=== PATIENT | male | born 1960 | race Caucasian/White ===

== ENCOUNTER 2016-12-12 13:45 | Inpatient (IN) | payer OTHER ==
[~2016-12-12] VITALS: Ht 182.9 cm; Wt 123.7 kg
[2016-12-12] VITALS (9 sets, daily range): BP systolic 98–128; BP diastolic 64–91
[~2016-12-12 13:45] MED LIST: [UNRECOGNIZED DRUG - REMARK]
--- OUTSIDE RECORDS SUMMARY | 2016-12-12 14:11 | XMS REPORT | Continuity of Care Document ---
Author Author [facility] Organization [facility] Address Unknown Phone Unavailable Allergies Medications Problems Procedures Results Encounters ACCT No. Visit Date/Time Discharge Status Pt. Type Provider Facility Loc./Unit Complaint [id number] 11/12/2013 13:43:00 2013 23:59:59 CLS Outpatient [id number] 2012 21:39:00 2012 22:33:00 DIS Emergency
[2016-12-12] MEDS ORDERED: MULT-35 PO (14:40)
[2016-12-12] MEDS ORDERED: VIT1CAPS9 PO (14:40)
[2016-12-12] MEDS ORDERED: FEXO180T84 PO (14:40)
[2016-12-12] MEDS ORDERED: L.AC1CAP6 PO (14:40)
[2016-12-12] MEDS ORDERED: NAPR220T66 PO (14:40)
[2016-12-12] MEDS ORDERED: POTA99TA21 PO (14:40)
[2016-12-12] MEDS ORDERED: CITA10TA12 PO (14:40)
[2016-12-12] MEDS ORDERED: CALC-823 PO (14:40)
[2016-12-12] MEDS ORDERED: LISI40TA PO (14:40)
[2016-12-12] MEDS ORDERED: MAGN400T39 PO (14:40)
[2016-12-12] MEDS ORDERED: FLAX1000 PO (14:40)
[2016-12-12] MEDS ORDERED: HYDR25TA4 PO (14:41)
[2016-12-12] MEDS ORDERED: CATHETER FLUSH 10 ML SYR IV PRN (14:45)
[2016-12-12] MEDS ORDERED: LISI1TAB8 PO (14:53)
[2016-12-12] MEDS ORDERED: ACET-2267 PO (14:53)
[2016-12-12] MEDS ORDERED: LORA10TA7 PO (14:53)
[2016-12-12] MEDS ORDERED: CA C1TAB78 PO (14:53)
[2016-12-12] MEDS ORDERED: FLUT16SP22 NS (14:53)
[2016-12-12] MEDS ORDERED: MV,M1TAB4 PO (14:53)
--- NOTE | 2016-12-12 15:32 | Diagnostic Imaging Report ---
EXAMINATION: PA and lateral views of the chest. INDICATION: Atrial fibrillation. FINDINGS: The heart size is mildly enlarged. The lungs are clear. No effusion or pneumothorax. The mediastinum and tiffanie appear unremarkable. IMPRESSION: Mild cardiomegaly. No focal infiltrate. Dictated by: Dictated on workstation # [id number]
--- NOTE | 2016-12-12 16:56 | Cardiology History & Physical ---
HPI-Cardiology Cardiology H&P Date of Admission 12/12/16 Primary Care Physician Roberto Rodriguez MD Attending Physician Lety Abreu MD, MA FACP [facility] Consulting Physician TYRELL CC: Palpitations HPI: 56 yo man who has been having a feeling of rapid heart beat that started on 12/09/16. This has varied in intensity, but has not resolved. This has been a feeling of a rapid heart beat that has varied in rate, but not resolved. Today he decided to come to the ER because was dizzy. Noted heart rate to be 145 bpm. Was found to have a fib/fl in the [place] ER from where he was sent to us. Denies cp, but has had a feeling of nonspecific chest discomfort continuously since 12/09/16, mild, nonradiating, w/o aggravating or relieving factors, associated with a feeling of rapid heart beat, never experienced before. Notes mild exertional shortness of breath Review of Systems-Cardiology Review of Systems Constitutional: malaise, tiredness, No weight loss, No weight gain Eyes: No vision change Ears/Nose/Throat: No ear discharge, No nasal drainage, No recent hearing loss Respiratory: As described under HPI Cardiovascular: As described under HPI Gastrointestinal: No constipation, No diarrhea, No nausea, No vomiting Genitourinary: No dysuria, No hematuria Musculoskeletal: No back pain, joint pain (chronic) Skin: No rash, No ulcerations Psychiatric/Neurological: No seizure, No focal weakness, No syncope Hematologic: No bleeding abnormalities [facility] Hx Immunizations Up To Date Tetanus Booster (TDap): Unknown Past Medical History PMH As described under Assessment. Family Medical History Family Medical History: No fam h/o CAD, SCD Allergies and Home Medications Allergies Coded Allergies: No Known Drug Allergies (Unverified , 12/02/12) Home Medications Acetaminophen 500 Mg Tablet, 1,000 MG PO Q4H PRN for PAIN-MILD, (Reported) Ca Carb & Gluc/Mag Ox & Gluc 1 Each Tablet, 1 TAB PO DAILY, (Reported) Citalopram Hydrobromide 10 Mg Tablet, 10 MG PO DAILY, (Reported) Flaxseed Oil 1,000 Mg Capsule, 4 CAP PO DAILY, (Reported) Fluticasone Propionate 16 Gm [place].susp, 1 SPRAY NS BID, (Reported) L.acidoph & Paracasei,B.lactis 1 Each Capsule, 1 CAP PO BID, (Reported) Lisinopril/Hydrochlorothiazide 1 Each Tablet, 2 TAB PO DAILY, (Reported) Loratadine 10 Mg Tablet, 10 MG PO DAILY, (Reported) Mv,Minerals/FA/Lycopene/Ginkgo 1 Each Tablet, 1 TAB PO DAILY, (Reported) Naproxen Sodium 220 Mg Tablet, 440 MG PO BID PRN for PAIN-MILD, (Reported) Potassium Gluconate 99 Mg Tablet, 99 MG PO DAILY, (Reported) Vit C/Vit E/Lutein/Min/[place]-3 1 Each Capsule, 1 CAP PO DAILY, (Reported) Physical Exam-Cardiology Physical Exam Vital Signs/I&O Capillary Refill : Constitutional: AAO x 3, well-developed, well-nourished HEENT: EOMI, hearing is well preserved, No xanthelasmas are seen Neck: No carotid bruit, carotid pulses are 2 + bilaterally, with good upstrokes Respiratory: No accessory muscle use, No respiratory distress, lungs clear to percussion, lungs clear to auscultation Cardiovascular: regular rate-rhythm, S1 and S2, systolic murmur (faint DARCI at card base) Gastrointestinal: No tender, soft, No guarding, No rebound, audible bowel sounds Extremities: No clubbing, No cyanosis, No significant edema Neurologic/Psychiatric: oriented x 3, grossly intact, power is 5/5 both on sides Skin: No rash on exposed areas, No ulcerations on exposed areas A/P-Cardiology Assessment/Admission Diagnosis PAF, first diagnosed on an ECG of 12/12/16 Obesity with BMI 37 H/o DJD Hypertension TSH normal on lab work of 12/12/16 at the [facility] Discussion and Recomendations * Enoxaparin for stroke prophylaxis * iv dilt for vent rate control * Echo to eval for structural heart disease * Monitor labs * If doesn't self-convert to NSR, will consider STAN and elec CV * I spoke with him and discussed his diagnosis and our management plan LETY ABREU MD FACP [facility] Dec 12, 2016 16:56
[2016-12-12] MEDS: DILTIAZEM DRIP 100 MG in SODIUM CHLORIDE (ADD-VANTAGE) 100 ML IV SCH ×2 (17:41→20:51)
[2016-12-12] MEDS: ACETAMINOPHEN 325 MG TABLET/CAPLET (TYLENOL) PO PRN (18:23)
[2016-12-12] MEDS ORDERED: INFLUENZA TRIvalent 2017-2018 0.5 ML/45 MCG SYR IM ONE (18:30)
[2016-12-12] MEDS: CATHETER FLUSH 10 ML SYR IV SCH (21:27)
[2016-12-12] MEDS ORDERED: ENOXAPARIN 60 MG/0.6 ML (LOVENOX) SYR SC SCH (22:00)
[2016-12-12] MEDS: ENOXAPARIN 300 MG/3 ML (LOVENOX) MULTI-DOSE VIAL SQ SCH (22:25)
[2016-12-13] VITALS (11 sets, daily range): BP systolic 97–138; BP diastolic 69–101
[2016-12-13] MEDS: ACETAMINOPHEN 325 MG TABLET/CAPLET (TYLENOL) PO PRN (00:38)
[2016-12-13] MEDS: DILTIAZEM DRIP 100 MG in SODIUM CHLORIDE (ADD-VANTAGE) 100 ML IV SCH (04:18)
[2016-12-13 05:06] LABS: BASOPHILS % (AUTO) 0 % (0-10); EOSINOPHILS # (AUTO) 0.2 10^3/uL (0.0-0.3); EOSINOPHILS % (AUTO) 4 % (0-10); LYMPHOCYTES # (AUTO) 2.4 X 10^3 (1.0-4.0); LYMPHOCYTES % (AUTO) 48 % (12-44); MEAN CORPUSCULAR HEMOGLOBIN 29 PG (25-34); MEAN CORPUSCULAR HGB CONC 33 G/DL (32-36); MEAN CORPUSCULAR VOLUME 87 FL (80-99); MEAN PLATELET VOLUME 9.3 FL (7.4-10.4); MONOCYTES # (AUTO) 0.5 X 10^3 (0.0-1.0); MONOCYTES % (AUTO) 10 % (0-12); NEUTROPHILS # (AUTO) 1.9 X 10^3 (1.8-7.8); NEUTROPHILS % (AUTO) 37 % (42-75); PLATELET COUNT 237 10^3/uL (130-400); RED BLOOD COUNT 5.17 10^6/uL (4.35-5.85); RED CELL DISTRIBUTION WIDTH 14.6 % (10.0-14.5)
[2016-12-13 05:22] LABS: ALANINE AMINOTRANSFERASE 36 U/L (0-55); ALBUMIN 3.8 GM/DL (3.2-4.5); ANION GAP 10 MMOL/L (5-14); ASPARTATE AMINO TRANSFERASE 21 U/L (5-34); BILIRUBIN,TOTAL 0.4 MG/DL (0.1-1.0); BLOOD UREA NITROGEN 17 MG/DL (7-18); BUN/CREATININE RATIO 20; CALCIUM 9.3 MG/DL (8.5-10.1); CARBON DIOXIDE 25 MMOL/L (21-32); CHLORIDE 103 MMOL/L (98-107); CREATININE SERUM 0.85 MG/DL (0.60-1.30); GFR ESTIMATED > 60; GLUCOSE 114 MG/DL (70-105); MAGNESIUM 2.3 MG/DL (1.8-2.4); SODIUM 138 MMOL/L (135-145); TOTAL PROTEIN 6.5 GM/DL (6.4-8.2)
[2016-12-13] MEDS: CATHETER FLUSH 10 ML SYR IV SCH (06:23)
[2016-12-13] MEDS ORDERED: NS IV 500 ML 500 ML ONE (09:41)
[2016-12-13] MEDS ORDERED: MIDAZOLAM 5 MG/5 ML (VERSED) VIAL ONE (09:44)
[2016-12-13] MEDS ORDERED: proPOfol 200 MG/20 ML (DIPRIVAN) VIAL IV ONE ×2 (09:44→10:15)
[2016-12-13] MEDS ORDERED: LIDOCAINE 2% VISCOUS 15 ML UDC PO NR (10:00)
[2016-12-13] MEDS ORDERED: NS IV 500 ML 500 ML IV SCH (10:00)
[2016-12-13] MEDS ORDERED: MIDAZOLAM 5 MG/5 ML (VERSED) VIAL IVP ONE (10:15)
[2016-12-13] MEDS ORDERED: APIXABAN 5 MG (ELIQUIS) TABLET PO NR (10:45)
[2016-12-13] MEDS ORDERED: DILTIAZEM 300 MG (CARDIZEM CD) CAP PO NR (11:12)
[2016-12-13] MEDS: ENOXAPARIN 300 MG/3 ML (LOVENOX) MULTI-DOSE VIAL SQ SCH (11:19)
[2016-12-13] MEDS ORDERED: LORATADINE (CLARITIN) 10 MG TAB PO SCH (11:43)
[2016-12-13] MEDS ORDERED: FLUTICASONE NASAL SPRAY (FLONASE) 16 GM BTL NS SCH (11:43)
--- NOTE | 2016-12-13 11:56 | Progress Note-Cardiology ---
Cardiology SOAP Progress Note Subjective: No cp, palp, syncope, shortness of breath Objective: I&O/Vital Signs Vital Sign - Last 12Hours 12/13/16 12/13/16 12/13/16 12/13/16 00:20 01:00 01:00 02:00 Pulse 73 73 70 Resp 18 21 B/P (MAP) 108/73 106/69 Pulse Ox 97 90 O2 Delivery Nasal Cannula Nasal Cannula Nasal Cannula O2 Flow Rate 2.00 2.00 2.00 12/13/16 12/13/16 12/13/16 12/13/16 03:00 04:00 04:00 04:05 Pulse 72 70 Resp 21 18 B/P (MAP) 101/74 102/78 Pulse Ox 88 98 O2 Delivery Nasal Cannula OxyMask OxyMask O2 Flow Rate 2.00 2.00 2.00 12/13/16 12/13/16 12/13/16 12/13/16 04:18 05:00 06:00 06:05 Pulse 71 91 71 71 Resp 29 22 22 B/P (MAP) 105/80 104/78 111/71 Pulse Ox 93 88 96 O2 Delivery OxyMask OxyMask OxyMask O2 Flow Rate 2.00 2.00 2.00 12/13/16 12/13/16 12/13/16 12/13/16 07:00 07:00 08:00 08:00 Temp 98.4 Pulse 75 98 71 Resp 10 29 B/P (MAP) 117/84 Pulse Ox 96 96 O2 Delivery OxyMask Room Air OxyMask O2 Flow Rate 2.00 2.00 12/13/16 12/13/16 12/13/16 12/13/16 08:15 09:00 10:00 11:00 Pulse 96 79 78 Resp 1 25 16 B/P (MAP) 138/101 107/83 108/80 Pulse Ox 97 94 97 O2 Delivery Room Air OxyMask OxyMask OxyMask O2 Flow Rate 2.00 2.00 2.00 Weight (Pounds): 272 Weight (Ounces): 11.5 Weight (Calculated Kilograms): 123.578228 Constitutional: AAO x 3, well-developed, well-nourished Respiratory: No accessory muscle use, No respiratory distress, lungs clear to percussion, lungs clear to auscultation Cardiovascular: regular rate-rhythm, S1 and S2, systolic murmur (faint DARCI at card base) Gastrointestional: No tender, soft, No guarding, No rebound, audible bowel sounds Extremities: No clubbing, No cyanosis, No significant edema Neurologic/Psychiatric: oriented x 3, grossly intact, power is 5/5 both on sides Skin: No rash on exposed areas, No ulcerations on exposed areas Results/Procedures: Labs Laboratory Tests 12/12/16 14:41: Glucometer 83 12/13/16 04:25: White Blood Count 5.0, Red Blood Count 5.17, Hemoglobin 14.9, Hematocrit 45, Mean Corpuscular Volume 87, Mean Corpuscular Hemoglobin 29, Mean Corpuscular Hemoglobin Concent 33, Red Cell Distribution Width 14.6H, Platelet Count 237, Mean Platelet Volume 9.3, Neutrophils (%) (Auto) 37L, Lymphocytes (%) (Auto) 48H , Monocytes (%) (Auto) 10, Eosinophils (%) (Auto) 4, Basophils (%) (Auto) 0, Neutrophils # (Auto) 1.9, Lymphocytes # (Auto) 2.4, Monocytes # (Auto) 0.5, Eosinophils # (Auto) 0.2, Basophils # (Auto) 0.0, Sodium Level 138, Potassium Level 4.0, Chloride Level 103, Carbon Dioxide Level 25, Anion Gap 10, Blood Urea Nitrogen 17, Creatinine 0.85, Estimat Glomerular Filtration Rate > 60, BUN/ Creatinine Ratio 20, Glucose Level 114H, Calcium Level 9.3, Magnesium Level 2.3 , Total Bilirubin 0.4, Aspartate Amino Transf (AST/SGOT) 21, Alanine Aminotransferase (ALT/SGPT) 36, Alkaline Phosphatase 48, Total Protein 6.5, Albumin 3.8 A/P: Assessment: PAF, first diagnosed on an ECG of 12/12/16. S/p successful conversion to NSR following 50J sync external cardioversion on 12/13/16 No evidence of ACS TTE on 12/12/16: LVEF approx 50-55%, triv MR and TR, mild conc LVH, mild to mod enlargement of aortic root, PASP approx 30 mmHg STAN on 12/13/16: LVEF 55-60%, normal valvular structure, trivial MR and TR, no evidence of intracardiac shunt or thrombus Obesity with BMI 37. PETE suspected Impaired fasting glucose H/o DJD Hypertension, controlled TSH normal on lab work of 12/12/16 at the [facility] Plan: * Ext elec CV this am post STAN, after informed consent for these procedures * Change dilt to oral long-acting. Change Lovenox to oral Elquis * Educated him on his risk for DM II and advised wgt loss and discussed strategies * Advised eval for PETE * I discussed with him in detail his CV diagnoses and treatments undertaken and future plans * Advised outpatient f/u OLENA ABREU MD FACP [facility] Dec 13, 2016 11:56
[2016-12-13] MEDS ORDERED: APIX5TAB PO (12:14)
[2016-12-13] MEDS ORDERED: DILT300C36 PO (12:14)
--- NOTE | 2016-12-13 12:14 | Discharge Inst-Cardiology ---
Discharge Inst-Cardiac Discharge Medications New Medications: Apixaban (Eliquis) 5 Mg Tablet 5 MG PO BID, #60 TAB 5 Refills Diltiazem HCl (Cardizem Cd) 300 Mg Cap.er.24h 300 MG PO DAILY for 30 Days, #30 CAP 5 Refills Continued Medications: Acetaminophen (Tylenol Extra Strength) 500 Mg Tablet 1000 MG PO Q4H PRN for PAIN-MILD, TAB Ca Carb & Gluc/Mag Ox & Gluc (Calcium Magnesium Caplet) 1 Each Tablet 1 TAB PO DAILY, TAB Citalopram Hydrobromide (Celexa) 10 Mg Tablet 10 MG PO DAILY, TAB Flaxseed Oil (Flaxseed Oil) 1,000 Mg Capsule 4 CAP PO DAILY, CAP Fluticasone Propionate (Fluticasone Propionate) 16 Gm [place].susp 1 SPRAY NS BID, SPRAY L.acidoph & Paracasei,B.lactis (Probiotic) 1 Each Capsule 1 CAP PO BID, CAP Loratadine (Loratadine) 10 Mg Tablet 10 MG PO DAILY, TAB Mv,Minerals/FA/Lycopene/Ginkgo (One Daily Men's 50+ Tablet) 1 Each Tablet 1 TAB PO DAILY, TAB Potassium Gluconate (Potassium) 99 Mg Tablet 99 MG PO DAILY, TAB Vit C/Vit E/Lutein/Min/[place]-3 (Ocuvite Softgel) 1 Each Capsule 1 CAP PO DAILY, CAP Discontinued Medications: Lisinopril/Hydrochlorothiazide (Lisinopril-Hctz 20-12.5 mg Tab) 1 Each Tablet 2 TAB PO DAILY, TAB Naproxen Sodium (Aleve) 220 Mg Tablet 440 MG PO BID PRN for PAIN-MILD, TAB Orders-Post D/C & Referrals Pneu Vac Indicated: Yes OLENA ABREU MD FACP [facility] Dec 13, 2016 12:14
--- NOTE | 2016-12-13 12:17 | Cardiology Discharge Summary ---
Diagnosis/Chief Complaint Date of Admission Dec 12, 2016 at 13:45 Date of Discharge 12/13/26 Final/Discharge Diagnosis Paroxysmal atrial flutter, first diagnosed on an ECG of 12/12/16. S/p successful conversion to NSR following 50J sync external cardioversion on No evidence of ACS TTE on 12/12/16: LVEF approx 50-55%, triv MR and TR, mild conc LVH, mild to mod enlargement of aortic root, PASP approx 30 mmHg STAN on 12/13/16: LVEF 55-60%, normal valvular structure, trivial MR and TR, no evidence of intracardiac shunt or thrombus Obesity with BMI 37. PETE suspected Impaired fasting glucose H/o DJD Hypertension, controlled TSH normal on lab work of 12/12/16 at the [facility] Chief Complaint/HPI Chief Complaint/HPI CC: Palpitations HPI: 56 yo man who has been having a feeling of rapid heart beat that started on 12/09/16. This has varied in intensity, but has not resolved. This has been a feeling of a rapid heart beat that has varied in rate, but not resolved. Today he decided to come to the ER because was dizzy. Noted heart rate to be 145 bpm. Was found to have a fib/fl in the [place] ER from where he was sent to us. Denies cp, but has had a feeling of nonspecific chest discomfort continuously since 12/09/16, mild, nonradiating, w/o aggravating or relieving factors, associated with a feeling of rapid heart beat, never experienced before. Notes mild exertional shortness of breath Please refer to our note of 12/13/16 for hospital course Discharge Summary Procedures TTE on 12/12/16 STAN and external electrical cardioversion on 12/13/16 Hospital Course Pending Labs Laboratory Tests 12/13/16 04:25: White Blood Count 5.0, Red Blood Count 5.17, Hemoglobin 14.9, Hematocrit 45, Mean Corpuscular Volume 87, Mean Corpuscular Hemoglobin 29, Mean Corpuscular Hemoglobin Concent 33, Red Cell Distribution Width 14.6, Platelet Count 237, Mean Platelet Volume 9.3, Neutrophils (%) (Auto) 37, Lymphocytes (%) (Auto) 48, Monocytes (%) (Auto) 10, Eosinophils (%) (Auto) 4, Basophils (%) (Auto) 0, Neutrophils # (Auto) 1.9, Lymphocytes # (Auto) 2.4, Monocytes # (Auto) 0.5, Eosinophils # (Auto) 0.2, Basophils # (Auto) 0.0, Sodium Level 138, Potassium Level 4.0, Chloride Level 103, Carbon Dioxide Level 25, Anion Gap 10, Blood Urea Nitrogen 17, Creatinine 0.85, Estimat Glomerular Filtration Rate > 60, BUN/ Creatinine Ratio 20, Glucose Level 114, Calcium Level 9.3, Magnesium Level 2.3, Total Bilirubin 0.4, Aspartate Amino Transf (AST/SGOT) 21, Alanine Aminotransferase (ALT/SGPT) 36, Alkaline Phosphatase 48, Total Protein 6.5, Albumin 3.8 Discussion & Recommendations Home Medications Reviewed patient Home Medication Reconciliation Form Discharge Home Medications: Reviewed and agree with Discharge Medication list on patient's Discharge Instruction sheet Clinical Quality Measures DVT/VTE Risk/Contraindication: Risk Factor Score Per Nursin RFS Level Per Nursing on Admit: 2=Moderate OLENA ABREU MD FACP [facility] Dec 13, 2016 12:17
[2016-12-13] MEDS ORDERED: APIXABAN 5 MG (ELIQUIS) TABLET PO SCH (21:00)
--- NOTE | 2016-12-14 06:54 | Progress Note-Standard ---
Standard Progress Note Progress Notes/Assess & Plan Date Seen by Provider: Dec 13, 2016 Time Seen by Provider: 10:20 Progress/Assessment & Plan postdated progress note .. consult for STAN/Cardioversion. pt NPO . 5mg versed and 20 mg propofol given. tolerated procedure well.. start time 1020 end time 1028 PRITESH LUGO CRNA Dec 14, 2016 06:54
[2016-12-14] MEDS ORDERED: DILTIAZEM 300 MG (CARDIZEM CD) CAP PO SCH (09:00)
--- OUTSIDE RECORDS SUMMARY | 2016-12-14 15:05 | XMS REPORT | Continuity of Care Document ---
Author Author [facility] Organization [facility] Address Unknown Phone Unavailable Allergies Medications Problems Procedures Results Encounters ACCT No. Visit Date/Time Discharge Status Pt. Type Provider Facility Loc./Unit Complaint [id number] 11/12/2013 13:43:00 2013 23:59:59 CLS Outpatient [id number] 2012 21:39:00 2012 22:33:00 DIS Emergency
== END 2016-12-13 14:20 | disposition home or self-care (01) | DRG 310 ==
LOC: ICU 13:45 → UNDOADMIN 13:45 → UNDODISIN 12-13 14:20
PROVIDERS: ADMIT Internal Medicine Cardiovascular Disease; ATTEND Internal Medicine Cardiovascular Disease
PROC: 5A2204Z Restoration of Cardiac Rhythm, Single (ICD-10-PCS; principal; 2016-12-13)
DX: I48.92 Unspecified atrial flutter (principal); E66.9 Obesity, unspecified; Z68.37 Body mass index [BMI] 37.0-37.9, adult; G47.33 Obstructive sleep apnea (adult) (pediatric); R73.01 Impaired fasting glucose; I10 Essential (primary) hypertension
CPT/HCPCS: 36415; 71020; 80053; 82962; 83735; 85025; 93005; 93306; 93312; 93320; 93325

== ENCOUNTER → 2018-09-06 | Outpatient (CLI) | payer OTHER ==
[~2018-09-06] MED LIST changes: +ACET-2267 PO; +APIX5TAB PO; +CA C1TAB78 PO; +CALC-823 PO; +CITA10TA12 PO; +DILT300C36 PO; +FEXO180T84 PO; +FLAX10004 PO; +FLUT16SP22 NS; +HYDR25TA4 PO; +L.AC1CAP6 PO; +LISI1TAB8 PO; +LISI40TA PO; +LORA10TA7 PO; +MAGN400T39 PO; +MULT-35 PO; +MV,M1TAB4 PO; +NAPR220T66 PO; +OCUVITE SOFTGE1 EACH PO; +POTA99TA21 PO
--- NOTE | 2018-09-06 09:59 | Diagnostic Imaging Report ---
PROCEDURE: CT urinary tract, rule out kidney stone. TECHNIQUE: Multiple contiguous axial images were obtained through the abdomen and pelvis without the use of intravenous contrast. Auto Exposure Controls were utilized during the CT exam to meet ALARA standards for radiation dose reduction. INDICATION: Low back pain for three weeks as well as urinary frequency. COMPARISON: No prior studies are available for comparison. FINDINGS: Lung bases are clear. No discrete liver mass is detected. The gallbladder is unremarkable. No biliary ductal dilatation is seen. The pancreas and spleen are unremarkable. No adrenal mass is detected. No renal or ureteral calculi are seen. There is no evidence of hydronephrosis. Aorta is nonaneurysmal. No central retroperitoneal or mesenteric lymphadenopathy is detected. The small and large bowel loops are normal in caliber. Appendix is unremarkable in the right lower quadrant. There is no ascites. Bladder is unremarkable. Prostate appears mildly enlarged. No pelvic lymphadenopathy is seen. The bony structures are nonacute. IMPRESSION: 1. No evidence of urinary tract calculi or obstruction. 2. No acute feature in the abdomen or pelvis is seen. 3. Mild prostatomegaly. Dictated by: Dictated on workstation # [id number]
== END ==
LOC: RAD 08:36
PROVIDERS: ATTEND Registered Nurse
DX: N40.1 Benign prostatic hyperplasia with lower urinary tract symptoms (principal); R35.0 Frequency of micturition; M54.9 Dorsalgia, unspecified
CPT/HCPCS: 74176

== ENCOUNTER → 2018-09-20 | Outpatient (CLI) | payer OTHER ==
--- NOTE | 2018-09-20 09:22 | Diagnostic Imaging Report ---
PROCEDURE: MRI lumbar spine. TECHNIQUE: Multiplanar, multisequence MRI of the lumbar spine was performed without contrast. INDICATION: Low back pain. No prior studies are available for comparison. Curvature of the lumbar spine is normal. Minimal retrolisthesis of L5 on S1 is noted. Vertebral body heights are maintained. No acute compression fracture is seen. No geographic marrow lesion is identified apart from a benign hemangiolipoma, within the L2 vertebral body. There is generalized disc desiccation. There is also disc space narrowing at L5-S1 level compatible with degenerative disc disease. Conus is unremarkable at the L1 level. T12-L1: Central canal and neural foramina are widely patent. L1-2: There is a left paramidline extruded disc. Disc extends slightly cephalad, posterior to the L1 vertebral body. Disc material measures approximately 12 mm transverse x 12 mm cephalocaudal x 6 mm AP. This does indent the ventral thecal sac. This appears to narrow the left lateral recess as well as moderate narrowing of left neural foramen. Central canal and right neural foramen are patent. L2-3: There are ligamentous changes as well as facet arthropathy but central canal remains widely patent. Neural foramina are patent. L3-4: There is some ligamentous thickening and facet changes of the central canal and neural foramina are patent. L4-5: Ligamentous thickening and facet changes are noted. This does result in bilateral lateral recess narrowing. There is mild right neural foraminal narrowing. Left neural foramen is patent. The central canal is patent. L5-S1: Central canal slightly patent. There is bilateral lateral recess narrowing. There is also mild to moderate bilateral neural foraminal narrowing. Paraspinous tissues are unremarkable. IMPRESSION: 1. Generalized lumbar spondylosis and facet arthropathy. There is extruded disc in the left paramidline location L1-2 level, as described resulting in left lateral recess and left neural foraminal stenosis. 2. Multilevel lateral recess and neural foraminal narrowing described level by level above. No central canal stenosis is identified. Dictated by: Dictated on workstation # [id number]
== END ==
LOC: RAD 08:03
PROVIDERS: ATTEND Nurse Practitioner Family
DX: M47.816 Spondylosis without myelopathy or radiculopathy, lumbar region (principal); M48.07 Spinal stenosis, lumbosacral region; M12.88 Other specific arthropathies, not elsewhere classified, other specified site
CPT/HCPCS: 72148

== ENCOUNTER 2020-07-07 07:18 | Inpatient (IN) | payer SELFPAY ==
[2020-07-07] VITALS (8 sets, daily range): BP systolic 106–131; BP diastolic 75–89
[~2020-07-07] VITALS: Ht 182 cm; Wt 122.6 kg
[~2020-07-07 07:18] MED LIST changes: +LISI1TAB46 PO; -LISI1TAB8 PO; -LISI40TA PO; +LISI40TA9 PO
[2020-07-07] MEDS ORDERED: NS IV 1000 ML 1,000 ML ONE (07:25)
[2020-07-07] MEDS ORDERED: dilTIAZem DRIP PRE-MIX 125 ML IV ONE (07:25)
[2020-07-07] MEDS ORDERED: LACTATED RINGERS 1,000 ML IV STA (07:32)
[2020-07-07 07:42] LABS: BASOPHILS # (AUTO) 0.1 10^3/uL (0.0-0.1); BASOPHILS % (AUTO) 1 % (0-10); EOSINOPHILS # (AUTO) 0.2 10^3/uL (0.0-0.3); EOSINOPHILS % (AUTO) 3 % (0-10); HEMATOCRIT 46 % (40-54); HEMOGLOBIN 15.1 g/dL (13.3-17.7); LYMPHOCYTES % (AUTO) 44 % (12-44); MEAN CORPUSCULAR HEMOGLOBIN 29 pg (25-34); MEAN CORPUSCULAR HGB CONC 33 g/dL (32-36); MEAN CORPUSCULAR VOLUME 87 fL (80-99); MEAN PLATELET VOLUME 9.2 fL (9.0-12.2); MONOCYTES # (AUTO) 0.7 10^3/uL (0.0-1.0); MONOCYTES % (AUTO) 10 % (0-12); NEUTROPHILS # (AUTO) 2.8 10^3/uL (1.8-7.8); NEUTROPHILS % (AUTO) 42 % (42-75); PLATELET COUNT 245 10^3/uL (130-400); WHITE BLOOD COUNT 6.8 10^3/uL (4.3-11.0)
[2020-07-07] MEDS ORDERED: dilTIAZem DRIP PRE-MIX 125 ML IV SCH ×2 (07:45→11:00)
[2020-07-07 07:59] LABS: ALBUMIN 4.4 GM/DL (3.2-4.5); CHLORIDE 97 MMOL/L (98-107); POTASSIUM 4.5 MMOL/L (3.6-5.0); SODIUM 132 MMOL/L (135-145)
[2020-07-07 08:00] LABS: CALCIUM 9.6 MG/DL (8.5-10.1)
[2020-07-07] MEDS ORDERED: APIXABAN 5 MG (ELIQUIS) TABLET PO ONE (08:00)
[2020-07-07 08:01] LABS: GLUCOSE 153 MG/DL (70-105)
--- NOTE | 2020-07-07 08:01 | ED Cardiac General ---
History of Present Illness General Chief Complaint: Cardiac/General Problems Stated Complaint: AFIB Nursing Triage Note: PT AMB TO ROOM 6 PT CO OF RAPID HR, PT STATES STARTED LAST PM. HAS HX OF A-FIB. PT STATES IS UNDER ALOT OF STRESS Source: patient Exam Limitations: no limitations History of Present Illness Date Seen by Provider: July 07, 2020 Time Seen by Provider: 07:20 Initial Comments Here with report of rapid heart rate and feeling fluttering in his chest. Denies chest pain. Did have some sweating at onset which was last night. Reports that he is under a lot of stress currently. Denies nausea, vomiting, weakness or breathing problems. Does have history of A. fib with RVR in the past. Currently is only taking aspirin for anticoagulation but apparently has been out of A. fib for a while. Last episode in 2017 he had to have cardioversion. Timing/Duration: 12 hours Severity: moderate Activities at Onset: none Prior CP/Workup: echocardiography Modifying Factors: worse with exercise; improves with rest NTG SL EARLY HEAD START DIRECTOR: No ASA po EARLY HEAD START DIRECTOR: Yes (Full dose this morning) Associated Systoms: No Cough, No Fever/Chills, No Nausea/Vomiting, No Weakness Allergies and Home Medications Allergies Coded Allergies: No Known Drug Allergies (Unverified , 12/02/12) Home Medications Acetaminophen 500 Mg Tablet, 1,000 MG PO Q4H PRN for PAIN-MILD, (Reported) Apixaban 5 Mg Tablet, 5 MG PO BID Prescribed by: OLENA CORONADO on 12/13/16 1214 Ca Carb & Gluc/Mag Ox & Gluc 1 Each Tablet, 1 TAB PO DAILY, (Reported) Citalopram Hydrobromide 10 Mg Tablet, 10 MG PO DAILY, (Reported) Diltiazem HCl 300 Mg Cap.er.24h, 300 MG PO DAILY Prescribed by: OLENA CORONADO on 12/13/16 1214 Flaxseed Oil 1,000 Mg Capsule, 4 CAP PO DAILY, (Reported) Fluticasone Propionate 16 Gm [place].susp, 1 SPRAY NS BID, (Reported) L.acidoph & Paracasei,B.lactis 1 Each Capsule, 1 CAP PO BID, (Reported) Loratadine 10 Mg Tablet, 10 MG PO DAILY, (Reported) Mv,Minerals/FA/Lycopene/Ginkgo 1 Each Tablet, 1 TAB PO DAILY, (Reported) Potassium Gluconate 99 Mg Tablet, 99 MG PO DAILY, (Reported) Vit C/Vit E/Lutein/Min/[place]-3 1 Each Capsule, 1 CAP PO DAILY, (Reported) Patient Home Medication List Home Medication List Reviewed: Yes Review of Systems Review of Systems Constitutional: see HPI; No chills, No fever EENTM: No Nose Congestion, No Throat Pain Respiratory: Denies Cough; SOA With Exertion; Denies SOA at Rest Cardiovascular: Denies Chest Pain; Irregular Heart Rate, Palpitations Gastrointestinal: No Symptoms Reported Genitourinary: No Symptoms Reported All Other Systems Reviewed Negative Unless Noted: Yes Past Hadyfov-Wcslqq-Zzmlmu Hx Past Med/Social Hx: Reviewed Nursing Past Med/Soc Hx Patient Social History Alcohol Use: Denies Use Smoking Status: Never a Smoker Recent Infectious Disease Expo: No Recent Hopitalizations: No Immunizations Up To Date Tetanus Booster (TDap): Unknown Seasonal Allergies Seasonal Allergies: Yes Past Medical History Surgeries: Yes (sphincter) Respiratory: No Currently Using CPAP: No Currently Using BIPAP: No Cardiac: Yes (New onset Afib 12/12/16) Atrial Fibrillation Neurological: Yes Reproductive Disorders: No Sexually Transmitted Disease: No HIV/AIDS: No Genitourinary: No Gastrointestinal: Yes Chronic Diarrhea, Irritable Bowel Musculoskeletal: Yes (numb fingers/wrists) Arthritis Endocrine: Yes (Hypoglycemia) HEENT: No Cancer: No Psychosocial: Yes Anxiety, Depression Integumentary: No Blood Disorders: No Adverse Reaction/Blood Tranf: No Family Medical History Reviewed Nursing Family Hx FH: CABG (coronary artery bypass surgery) 19 FATHER FH: COPD (chronic obstructive pulmonary disease) 19 MOTHER FH: HTN (hypertension) 19 FATHER 19 MOTHER FH: macular degeneration 19 MOTHER FH: osteoporosis 19 MOTHER Physical Exam Vital Signs Vital Signs - First Documented 07/07/20 07:18 Temp 35.9 Pulse 142 Resp 18 B/P (MAP) 149/98 (115) Pulse Ox 98 Capillary Refill : Less Than 3 Seconds Height, Weight, BMI Height: 6'0.00" Weight: 272lbs. 11.5oz. 123.276451np; 37.00 BMI Method:Stated General Appearance: No Apparent Distress, WD/WN HEENT: PERRL/EOMI, Pharynx Normal Neck: Non Tender, Supple Respiratory: Lungs Clear, Normal Breath Sounds Cardiovascular: Irregularly Irregular, Tachycardia Gastrointestinal: Non Tender, Soft Extremity: Normal Inspection, Normal Range of Motion, Non Tender, No Calf Tend erness Neurologic/Psychiatric: Alert, Oriented x3 Skin: Normal Color, Warm/Dry Progress/Results/Core Measures Results/Orders Lab Results Laboratory Tests Test 07/07/20 07:25 Range/Units White Blood Count 6.8 4.3-11.0 10^3/uL Red Blood Count 5.22 4.30-5.52 10^6/uL Hemoglobin 15.1 13.3-17.7 g/dL Hematocrit 46 40-54 % Mean Corpuscular Volume 87 80-99 fL Mean Corpuscular Hemoglobin 29 25-34 pg Mean Corpuscular Hemoglobin Concent 33 32-36 g/dL Red Cell Distribution Width 13.6 10.0-14.5 % Platelet Count 245 130-400 10^3/uL Mean Platelet Volume 9.2 9.0-12.2 fL Immature Granulocyte % (Auto) 1 % Neutrophils (%) (Auto) 42 42-75 % Lymphocytes (%) (Auto) 44 12-44 % Monocytes (%) (Auto) 10 0-12 % Eosinophils (%) (Auto) 3 0-10 % Basophils (%) (Auto) 1 0-10 % Neutrophils # (Auto) 2.8 1.8-7.8 10^3/uL Lymphocytes # (Auto) 3.0 1.0-4.0 10^3/uL Monocytes # (Auto) 0.7 0.0-1.0 10^3/uL Eosinophils # (Auto) 0.2 0.0-0.3 10^3/uL Basophils # (Auto) 0.1 0.0-0.1 10^3/uL Immature Granulocyte # (Auto) 0.1 0.0-0.1 10^3/uL Prothrombin Time 12.7 12.2-14.7 SEC INR Comment 0.9 0.8-1.4 Activated Partial Thromboplast Time 26 24-35 SEC Sodium Level 132 L 135-145 MMOL/L Potassium Level 4.5 3.6-5.0 MMOL/L Chloride Level 97 L 98-107 MMOL/L Carbon Dioxide Level 24 21-32 MMOL/L Anion Gap 11 5-14 MMOL/L Blood Urea Nitrogen 23 H 7-18 MG/DL Creatinine 1.09 0.60-1.30 MG/DL Estimat Glomerular Filtration Rate > 60 BUN/Creatinine Ratio 21 Glucose Level 153 H 70-105 MG/DL Calcium Level 9.6 8.5-10.1 MG/DL Corrected Calcium 9.3 8.5-10.1 MG/DL Magnesium Level 2.1 1.6-2.4 MG/DL Total Bilirubin 0.4 0.1-1.0 MG/DL Aspartate Amino Transf (AST/SGOT) 18 5-34 U/L Alanine Aminotransferase (ALT/SGPT) 26 0-55 U/L Alkaline Phosphatase 50 40-136 U/L Myoglobin 48.0 10.0-92.0 NG/ML Troponin I < 0.028 <0.028 NG/ML Total Protein 7.3 6.4-8.2 GM/DL Albumin 4.4 3.2-4.5 GM/DL My Orders Orders - CATHY ALVAREZ MD Cbc With Automated Diff (07/07/20 07:32) Magnesium (07/07/20 07:32) Chest 1 View, Ap/Pa Only (07/07/20 07:32) Ekg Tracing (07/07/20 07:32) Comprehensive Metabolic Panel (07/07/20 07:32) Myoglobin Serum (07/07/20 07:32) Protime With Inr (07/07/20:32) Partial Thromboplastin Time (07/07/20 07:32) O2 (07/07/20 07:32) Monitor-Rhythm Ecg Trace Only (07/07/20 07:32) Lipid Panel (07/08/20 06:00) Ed Iv/Invasive Line Start (07/07/20:32) Troponin I (07/07/20 07:32) Diltiazem Drip Pre-Mix (Cardizem Drip Pr (07/07/20 07:45) Diltiazem Injection (Cardizem Injection) (07/07/20 07:45) Lactated Ringers (Lr 1000 Ml Iv Solution (07/07/20 07:32) Diltiazem Drip Pre-Mix (Cardizem Drip Pr (07/07/20 07:25) Diltiazem Injection (Cardizem Injection) (07/07/20 07:25) Ns Iv 1000 Ml (Sodium Chloride 0.9%) (07/07/20 07:25) Apixaban Tablet (Eliquis Tablet) (07/07/20 08:00) Medications Given in ED Current Medications Medications Dose Ordered Sig/Kanika Route Start Time Stop Time Status Last Admin Dose Admin Apixaban 5 mg ONCE ONCE PO 07/07/20 08:00 07/07/20 08:01 DC 07/07/20 07:58 5 MG Diltiazem HCl 10 mg ONCE ONCE IVP 07/07/20 07:45 07/07/20 07:46 DC 07/07/20 07:40 10 MG Sodium Chloride 1,000 ml @ ud STK-MED ONCE .ROUTE 07/07/20 07:25 07/07/20 07:35 DC 07/07/20 07:42 1,000 MLS/HR Vital Signs/I&O 07/07/20 07:18 Temp 35.9 Pulse 142 Resp 18 B/P (MAP) 149/98 (115) Pulse Ox 98 Blood Pressure Mean: 115 Progress Progress Note : Progress Note Seen and evaluated. IV, labs, EKG and chest x-ray ordered. Patient has already had aspirin this morning. Patient in A. fib with RVR with blood pressure low end of normal. Normal saline 1 L bolus ordered. Cardizem 10 mg bolus at initiated drip at 20 mg/h. 0755: I did discuss the case with Dr. Coronado and we will initiate Eliquis now. Patient did have problems with this previously due to cost but we will initiate it for now for protection and further determination per inpatient team. 0827: I did discuss the case with Dr. Manrique. Patient's he art rate is controlled in the 80s to 90s currently. We will continue Cardizem. She accepts patient to admission to the ICU with Dr. CORONADO on consult. Findings and concerns discussed with patient who agrees with plan. Admit, inpatient status. Initial ECG Impression Date: July 07, 2020 Initial ECG Impression Time: 07:20 Initial ECG Rate: 130 Initial ECG Rhythm: A Fib/Flutter Comment Atrial fibrillation with rapid ventricular response. Rate 130. Left axis deviation. No evidence of ST elevation on my. Change from previous of 12/13/2016 which was sinus rhythm. Interpreted by me. Diagnostic Imaging Diagonstic Imaging: Xray Plain Films/CT/US/NM/MRI: chest Comments [facility] [place], [place] NAME: ANJALI FAN [facility] REC#: [id number] PT STATUS: REG ER : 1960 PHYSICIAN: CATHY ALVAREZ MD ADMIT DATE: 07/07/20/ER Draft Date of Exam:07/07/20 CHEST 1 VIEW, AP/PA ONLY INDICATION: Chest pain, atrial fibrillation. Frontal chest obtained 8:03 a.m. and compared to 12/12/2016. FINDINGS: Heart and mediastinal silhouette are normal in appearance. The lungs are clear. There is no pneumothorax or pleural fluid. IMPRESSION: No acute process in the chest. Dictated on workstation # [id number] Dict: 07/07/20 0804 Trans: 07/07/20 0806 [id number] Interpreted by: EVELYN VILLARREAL MD Electronically signed by: Departure Communication (Admissions) Time/Spoke to Admitting Phy: 08:27 Time/Spoke to Consulting Phy: 07:55 Impression Primary Impression: Atrial fibrillation with RVR Disposition: ADMITTED INPATIENT Condition: Stable Admissions Decision to Admit Reason: Admit from ER (General) Decision to Admit/Date: July 07, 2020 Time/Decision to Admit Time: 08:27 Departure-Patient Inst. Referrals: BLADIMIR MUNOZ MD (PCP) Primary Care Physician RYAN CALDERON (Family) Primary Care Physician CATHY ALVAREZ MD July 07, 2020 08:01
[2020-07-07 08:02] LABS: TOTAL PROTEIN 7.3 GM/DL (6.4-8.2)
[2020-07-07 08:03] LABS: BILIRUBIN,TOTAL 0.4 MG/DL (0.1-1.0); CARBON DIOXIDE 24 MMOL/L (21-32)
[2020-07-07 08:05] LABS: ALKALINE PHOSPHATASE 50 U/L (40-136); CREATININE SERUM 1.09 MG/DL (0.60-1.30); GFR ESTIMATED > 60
[2020-07-07 08:06] LABS: BUN/CREATININE RATIO 21
--- NOTE | 2020-07-07 08:07 | Diagnostic Imaging Report ---
INDICATION: Chest pain, atrial fibrillation. Frontal chest obtained 8:03 a.m. and compared to 12/12/2016. FINDINGS: Heart and mediastinal silhouette are normal in appearance. The lungs are clear. There is no pneumothorax or pleural fluid. IMPRESSION: No acute process in the chest. Dictated by: Dictated on workstation # [id number]
[2020-07-07 08:08] LABS: ALANINE AMINOTRANSFERASE 26 U/L (0-55); MAGNESIUM 2.1 MG/DL (1.6-2.4)
[2020-07-07 08:13] LABS: INR 0.9 (0.8-1.4); PROTHROMBIN TIME PATIENT 12.7 SEC (12.2-14.7)
--- NOTE | 2020-07-07 08:19 | Consultation-Cardiology ---
HPI-Cardiology Cardiology Consultation: Date of Consultation 07/07/20 Time Seen by a Provider: 11:15 Date of Admission 07-07-20 Attending Physician Admitting Physician aRfaela Quarles MD Consulting Physician Lety Coronado MD HPI: Chief Complaint: A-fib with RVR Mr. Fan is a 59 yr old male admitted to ICU 7 from the ED with a-fib with RVR. He states last night around 9 p.m. he was watching television when he felt his heart start to flutter. He reports he felt diaphoretic at the time. No c/o CP, syncope or near syncope. He states he did not want to come to the ED so he waited until this morning. He reports he has a h/o a-fib in the past. He reports he has only been taking ASA 81mg BID d/t cost of Eliquis and concerns with bleeding. He does not report any LE swelling. He states he has not been using his CPAP for several months d/t not being able to tolerate the mask. He does not report any n/v/d. No c/o fever or chills. Review of Systems-Cardiology Review of Systems Constitutional: No chills, No fever; malaise Eyes: No vision change Ears/Nose/Throat: No epistaxis, No recent hearing loss Respiratory: As described under HPI Cardiovascular: As described under HPI Gastrointestinal: No constipation, No diarrhea, No nausea, No vomiting Genitourinary: No dysuria, No hematuria Musculoskeletal: joint pain (reports chronic arthritis pain) Skin: No rash on exposed areas, No ulcerations on exposed areas Psychiatric/Neurological: No anxiety, No depression, No seizure, No focal weakness, No syncope Hematologic: easy bleeding, easy bruising All Other Systems Reviewed Negative Unless Noted: Yes FAP-Yoicvo-Zijdyt Hx Patient Social History Smoking Status: Never a Smoker Immunizations Up To Date Tetanus Booster (TDap): Unknown Past Medical History PMH As described under Assessment. Family Medical History Family Medical History: Reports father had CAD with CABG and HTN. Reports his mother has HTN Family History: 19 FATHER FH: CABG (coronary artery bypass surgery) FH: HTN (hypertension) 19 MOTHER FH: COPD (chronic obstructive pulmonary disease) FH: HTN (hypertension) FH: macular degeneration FH: osteoporosis Allergies and Home Medications Allergies Coded Allergies: No Known Drug Allergies (Unverified , 12/02/12) Home Medications Acetaminophen 500 Mg Tablet, 1,000 MG PO Q4H PRN for PAIN-MILD, (Reported) Apixaban 5 Mg Tablet, 5 MG PO BID Prescribed by: LETY CORONADO on 12/13/16 1214 Ca Carb & Gluc/Mag Ox & Gluc 1 Each Tablet, 1 TAB PO DAILY, (Reported) Citalopram Hydrobromide 10 Mg Tablet, 10 MG PO DAILY, (Reported) Diltiazem HCl 300 Mg Cap.er.24h, 300 MG PO DAILY Prescribed by: LETY CORONADO on 12/13/16 1214 Flaxseed Oil 1,000 Mg Capsule, 4 CAP PO DAILY, (Reported) Fluticasone Propionate 16 Gm [place].susp, 1 SPRAY NS BID, (Reported) L.acidoph & Paracasei,B.lactis 1 Each Capsule, 1 CAP PO BID, (Reported) Loratadine 10 Mg Tablet, 10 MG PO DAILY, (Reported) Mv,Minerals/FA/Lycopene/Ginkgo 1 Each Tablet, 1 TAB PO DAILY, (Reported) Potassium Gluconate 99 Mg Tablet, 99 MG PO DAILY, (Reported) Vit C/Vit E/Lutein/Min/[place]-3 1 Each Capsule, 1 CAP PO DAILY, (Reported) Physical Exam-Cardiology Physical Exam Vital Signs/I&O 07/07/20 07/07/20 07/07/20 07/07/20 07:18 09:57 10:00 10:22 Temp 35.9 Pulse 142 76 74 Resp 18 18 23 B/P (MAP) 149/98 (115) 110/83 123/85 (98) Pulse Ox 98 99 95 99 O2 Delivery Room Air Room Air 07/07/20 10:37 Pulse 71 Capillary Refill : Less Than 3 Seconds Constitutional: AAO x 3, well-developed, well-nourished HEENT: PERRL, hearing is well preserved, oral hygience is good Neck: No carotid bruit; carotid pulses are 2 + bilaterally Respiratory: No accessory muscle use, No respiratory distress; chest expansion is symmetric, chest is bilaterally symmetric, lungs clear to auscultation Cardiovascular: regular rate-rhythm; No JVD; S1 and S2 Gastrointestinal: No tender; soft, round, audible bowel sounds Extremities: no lower extremity edema bilateral Neurologic/Psychiatric: grossly intact (moves all extremities) Skin: No rash on exposed areas, No ulcerations on exposed areas Data Review Labs Laboratory Tests 07/07/20 07:25: White Blood Count 6.8, Red Blood Count 5.22, Hemoglobin 15.1, Hematocrit 46, Mean Corpuscular Volume 87, Mean Corpuscular Hemoglobin 29, Mean Corpuscular Hemoglobin Concent 33, Red Cell Distribution Width 13.6, Platelet Count 245, Mean Platelet Volume 9.2, Immature Granulocyte % (Auto) 1, Neutrophils (%) (Auto) 42, Lymphocytes (%) (Auto) 44, Monocytes (%) (Auto) 10, Eosinophils (%) (Auto) 3, Basophils (%) (Auto) 1, Neutrophils # (Auto) 2.8, Lymphocytes # (Auto) 3.0, Monocytes # (Auto) 0.7, Eosinophils # (Auto) 0.2, Basophils # (Auto) 0.1, Immature Granulocyte # (Auto) 0.1, Prothrombin Time 12.7, INR Comment 0.9, Activated Partial Thromboplast Time 26, Sodium Level 132L, Potassium Level 4.5, Chloride Level 97L, Carbon Dioxide Level 24, Anion Gap 11, Blood Urea Nitrogen 23H, Creatinine 1.09, Estimat Glomerular Filtration Rate > 60, BUN/Creatinine Ratio 21, Glucose Level 153H, Calcium Level 9.6, Corrected Calcium 9.3, Magnesium Level 2.1, Total Bilirubin 0.4, Aspartate Amino Transf (AST/SGOT) 18, Alanine Aminotransferase (ALT/SGPT) 26, Alkaline Phosphatase 50, Myoglobin 48.0, Troponin I < 0.028, Total Protein 7.3, Albumin 4.4 07/07/20 11:00: Glucometer 136H Radiology NAME: ANJALI FAN [facility] REC#: [id number] PT STATUS: REG ER : 1960 PHYSICIAN: CATHY ALVAREZ MD ADMIT DATE: 07/07/20/ER Draft Date of Exam:07/07/20 CHEST 1 VIEW, AP/PA ONLY INDICATION: Chest pain, atrial fibrillation. Frontal chest obtained 8:03 a.m. and compared to 12/12/2016. FINDINGS: Heart and mediastinal silhouette are normal in appearance. The lungs are clear. There is no pneumothorax or pleural fluid. IMPRESSION: No acute process in the chest. Dictated on workstation # [id number] Dict: 07/07/20 0804 Trans: 07/07/20 0806 [id number] Interpreted by: EVELYN VILLARREAL MD Electronically signed by: ECG Impression ECG Initial ECG Impression: Atrial Fibrillation w/RVR A/P-Cardiology Assessment/Admission Diagnosis Paroxysmal atrial fib/flutter - first diagnosed on an ECG of 12/12/16. - H/O successful conversion to NSR following 50J sync external cardioversion on 12/13/16 - episode of a-fib on 07-07-20 - converted to SR on Cardizem gtt Reports intolerance to oral anticoagulants (bleeds profusely from minor cuts, worries about OAC) - has only been taking ASA 81mg BID PETE diagnosed in Nov 2018, being treated with CPAP - not compliant with CPAP Hypertension, controlled No evidence of ACS TTE on 12/12/16: LVEF approx 50-55%, triv MR and TR, mild conc LVH, mild to mod enlargement of aortic root, PASP approx 30 mmHg STAN on 12/13/16: LVEF 55-60%, normal valvular structure, trivial MR and TR, no evidence of intracardiac shunt or thrombus Obesity with BMI 37. PETE suspected Impaired fasting glucose H/o DJD Hypertension, controlled TSH normal on lab work of 12/12/16 at the [facility] Mild bilat leg swelling, likely related to venous insuff Discussion and Recomendations H/O PAF - converted to SR on Cardizem gtt - change to oral Echocardiogram to eval structure and function Stop ASA and start OAC Advised compliance with CPAP Monitor lab Replace electrolytes as indicated Further recs will be based on his hospital course We would like to thank medical services for this consult Clinical Quality Measures AMI/AHF: ASA po Prior to arrival: Yes (Full dose this morning) ELTON BRADY July 07, 2020 08:19
[2020-07-07] MEDS ORDERED: ONDANSETRON 4 MG/2 ML (SDV) Z0FRAN IVP PRN (11:00)
[2020-07-07] MEDS ORDERED: CATHETER FLUSH 10 ML SYR IV PRN (11:00)
[2020-07-07] MEDS ORDERED: ACETAMINOPHEN 500 MG TAB (TYLENOL) PO PRN (11:00)
[2020-07-07] MEDS: inSUlin ASPART (NovoLOG) 1 UNIT/0.01 ML (CHARGE PER UNIT) SC SCH ×2 (11:10→17:31)
--- NOTE | 2020-07-07 12:19 | History & Physical-Hospitalist ---
History of Present Illness HPI/Chief Complaint Pt is a 59yoCM with a PMH of a-fib, NIDDMII, HTN, who presented to the ER due to heart palpitations. He has a long history of a fib and felt that's what it was last night when it started at 930pm. He was not doing much when it started. He was hoping that it would get better with sleep but it continued to worsen throughout the night prompting him to seek evaluation in the ER. He was found to be in a-fib with RVR. His heart was 140s on arrival but he states it was as high as 190. He was started on a cardizem gtt and responded well. He believes this all to be due to recent stress in his life. He had been on Eliquis but stopped it due to cost and has been taking 2 ASA daily. Source: patient Date Seen 07/07/20 Time Seen by a Provider: 12:00 Attending Physician Pankaj Manrique MD PCP No,Local Physician Referring Physician Date of Admission July 07, 2020 at 08:27 Home Medications & Allergies Home Medications Reviewed patient Home Medication Reconciliation performed by pharmacy medication reconciliations automotive glass technician and/or nursing. Patients Allergies have been reviewed. Allergies Allergies Coded Allergies No Known Drug Allergies ([id number]/13/13) Patient Social History Tobacco Use?: No Smoking Status: Never a Smoker Use of E-Cig and/or Vaping dev: No Substance use?: No Alcohol Use?: No Pt stated abuse/neglect: No Immunizations Up To Date Influenza Vaccine Up-to-Date: Yes; Up-to-Date First/Initial COVID19 Vaccinat: 06/30/2020 Tetanus Booster (TDap): Unknown Hepatitis A: No Hepatitis B: No Current Status Do you have an Advance Directi: No Communicates: Verbally Primary Language: Urdu Preferred Spoken Language: Urdu Is interpretation needed?: No Sensory deficits: Vision impairment Implanted or Applied Medical D: None Past Medical History HTN, HLD, pAF, NIDDMII, PETE Review of Systems Constitutional: No chills, No fever; malaise EENTM: No nose congestion, No throat pain Respiratory: No cough, No dyspnea on exertion, No short of breath Cardiovascular: No chest pain, No edema; Hx of Intervention, palpitations; No syncope Gastrointestinal: No abdominal pain, No constipation, No diarrhea, No loss of appetite, No nausea, No vomiting Genitourinary: No dysuria, No frequency Musculoskeletal: no symptoms reported Skin: no symptoms reported Psychiatric/Neurological: No Symptoms Reported Physical Exam Physical Exam Vital Signs Vital Signs - First Documented 07/07/20 07/07/20 07:18 10:00 Temp 35.9 Pulse 142 Resp 18 B/P (MAP) 149/98 (115) Pulse Ox 98 O2 Delivery Room Air Capillary Refill : Less Than 3 Seconds Height, Weight, BMI Height: 6'0.00" Weight: 272lbs. 11.5oz. 123.656236xa; 37.01 BMI Method:Stated General Appearance: No Apparent Distress, WD/WN, Obese HEENT: PERRL/EOMI, Moist Mucous Membranes; No Scleral Icterus (L), No Scleral Icterus (R) Neck: Normal Inspection, Supple Respiratory: Lungs Clear, No Accessory Muscle Use, No Respiratory Distress Cardiovascular: Regular Rate, Rhythm, No JVD, No Murmur, Normal Peripheral Pulses Gastrointestinal: Normal Bowel Sounds, Non Tender, Soft Extremity: No Calf Tenderness, No Pedal Edema Neurologic/Psychiatric: Alert, Oriented x3, Normal Mood/Affect Skin: Normal Color, Warm/Dry Results Results/Procedures Labs Laboratory Tests 07/07/20 07:25 Patient resulted labs reviewed. 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
[2020-07-07] MEDS ORDERED: TOTAL RESTORE PO (13:45)
[2020-07-07] MEDS ORDERED: GLUC-235 PO (13:45)
[2020-07-07] MEDS ORDERED: ASPI-1238 PO (13:45)
[2020-07-07] MEDS ORDERED: L.AC1CAP6 PO (13:45)
[2020-07-07] MEDS ORDERED: MELO7.5T46 PO (13:45)
[2020-07-07] MEDS ORDERED: CITA20TA9 PO (13:45)
[2020-07-07] MEDS ORDERED: METF-397 PO (13:45)
[2020-07-07] MEDS ORDERED: POTA10TA PO (13:45)
[2020-07-07] MEDS ORDERED: LISI1TAB46 PO (13:45)
[2020-07-07] MEDS ORDERED: KRIL1CAP18 PO (13:45)
[2020-07-07] MEDS ORDERED: DILT300C26 PO (13:45)
[2020-07-07] MEDS ORDERED: CATHETER FLUSH 10 ML SYR IV SCH (14:00)
[2020-07-07] MEDS ORDERED: RIVA20TA2 PO (16:59)
[2020-07-07] MEDS ORDERED: RIVAROXABAN 20 MG TABLET (XARELTO) PO SCH (17:00)
--- NOTE | 2020-07-07 17:05 | Discharge Inst-Simple/Standard ---
Discharge Inst-Standard Patient Instructions/Follow Up Plan of Care/Instructions/FU: Please continue to take your medications as written. Please follow up with Jennifer Muse and Dr Coronado in the next 1-2 weeks to follow up this hospital stay. Activity as Tolerated: Yes Discharge Diet: Cardiac Diet Return to The Hospital For: Chest pain, shortness of breath, palpitations, if you feel you are getting worse. PANKAJ SALMERON MD July 07, 2020 17:05
--- NOTE | 2020-07-07 17:58 | Consultation-Cardiology ---
HPI-Cardiology Cardiology Consultation: Date of Consultation 07/07/20 Time Seen by a Provider: 16:40 Date of Admission Attending Physician Pankaj Manrique MD Admitting Physician No,Local Physician Consulting Physician OLENA ABREU MD, MA,FACP, FACC, FSCAI, CCDS HPI: Chief Complaint: A-fib with RVR Mr. Pearson is a 59 yr old male admitted to ICU 7 from the ED with a-fib with RVR. He states last night around 9 p.m. he was watching television when he felt his heart start to flutter. He reports he felt diaphoretic at the time. No c/o CP, syncope or near syncope. He states he did not want to come to the ED so he waited until this morning. He reports he has a h/o a-fib in the past. He reports he has only been taking ASA 81mg BID d/t cost of Eliquis and concerns with bleeding. He does not report any LE swelling. He states he has not been using his CPAP for several months d/t not being able to tolerate the mask. He does not report any n/v/d. No c/o fever or chills. Review of Systems-Cardiology Review of Systems Constitutional: No chills, No fever; malaise Eyes: No vision change Ears/Nose/Throat: No epistaxis, No recent hearing loss Respiratory: As described under HPI Cardiovascular: As described under HPI Gastrointestinal: No constipation, No diarrhea, No nausea, No vomiting Genitourinary: No dysuria, No hematuria Musculoskeletal: joint pain (reports chronic arthritis pain) Skin: No rash on exposed areas, No ulcerations on exposed areas Psychiatric/Neurological: No anxiety, No depression, No seizure, No focal weakness, No syncope Hematologic: easy bleeding, easy bruising All Other Systems Reviewed Negative Unless Noted: Yes AGO-Bvmwau-Vgzhct Hx Patient Social History Smoking Status: Never a Smoker Have you traveled recently?: No Alcohol Use?: No Pt feels they are or have been: No Immunizations Up To Date Tetanus Booster (TDap): Unknown Date of Influenza Vaccine: Dec 04, 2019 Past Medical History PMH As described under Assessment. Family Medical History Family Medical History: Reports father had CAD with CABG and HTN. Reports his mother has HTN Family History: FH: CABG (coronary artery bypass surgery) 19 FATHER FH: COPD (chronic obstructive pulmonary disease) 19 MOTHER FH: HTN (hypertension) 19 FATHER 19 MOTHER FH: macular degeneration 19 MOTHER FH: osteoporosis 19 MOTHER Allergies and Home Medications Allergies Coded Allergies: No Known Drug Allergies (Unverified , 12/02/12) Home Medications Aspirin 81 Mg Tablet.dr, 81 MG PO BID, (Reported) Last Action: Reviewed Citalopram Hydrobromide 20 Mg Tablet, 20 MG PO DAILY, (Reported) Last Action: Reviewed Diltiazem HCl 300 Mg Cap.er.24h, 300 MG PO DAILY, (Reported) Last Action: Reviewed Glucos Sul 2Kcl/MSM/Chond/C/Mn 1 Each Capsule, 1 EACH PO DAILY, (Reported) Last Action: Reviewed Krill/Om-3/Dha/Epa/Phospho/Ast 1 Each Capsule, 1 EACH PO BID, (Reported) Last Action: Reviewed L.acidoph & Paracasei,B.lactis 1 Each Capsule, 1 EACH PO DAILY, (Reported) Last Action: Reviewed Lisinopril/Hydrochlorothiazide 1 Each Tablet, 2 EA PO DAILY, (Reported) TAKES 2 (20/12.5MG) TABS Last Action: Reviewed Meloxicam 7.5 Mg Tablet, 7.5 MG PO BID, (Reported) Last Action: Reviewed Metformin HCl 500 Mg Tablet, 500 MG PO BID, (Reported) Last Action: Reviewed Potassium Chloride 10 Meq Tablet.er, 10 MEQ PO DAILY, (Reported) Last Action: Reviewed Rivaroxaban 20 Mg Tablet, 20 MG PO DAILY@1700 Prescribed by: PANKAJ MANRIQUE on 07/07/20 1659 [Total Restore] CAP, 3 CAP PO DAILY, (Reported) Last Action: Reviewed Patient Home Medication List Home Medication List Reviewed: Yes Physical Exam-Cardiology Physical Exam Vital Signs/I&O 07/07/20 07/07/20 07/07/20 07/07/20 07:18 09:57 10:00 10:22 Temp 35.9 Pulse 142 76 74 Resp 18 18 23 B/P (MAP) 149/98 (115) 110/83 123/85 (98) Pulse Ox 98 99 95 99 O2 Delivery Room Air Room Air 07/07/20 07/07/20 07/07/20 07/07/20 10:37 11:00 12:00 12:00 Pulse 71 69 72 Resp 13 25 B/P (MAP) 108/75 (86) 131/80 (97) Pulse Ox 94 91 99 O2 Delivery Room Air Room Air Room Air 07/07/20 07/07/20 07/07/20 07/07/20 13:00 13:00 14:00 14:30 Temp 36.5 Pulse 84 80 80 Resp 22 27 B/P (MAP) 109/76 (87) 106/75 (85) Pulse Ox 90 95 O2 Delivery Room Air Room Air 07/07/20 07/07/20 07/07/20 07/07/20 15:00 15:59 16:00 16:16 Temp 36.9 Pulse 77 78 Resp 26 25 B/P (MAP) 112/76 (88) 122/79 (93) Pulse Ox 94 99 93 O2 Delivery Room Air Room Air Room Air 07/07/20 17:00 Pulse 80 Resp 16 B/P (MAP) 116/89 (98) Pulse Ox 94 O2 Delivery Room Air Capillary Refill : Less Than 3 Seconds Constitutional: AAO x 3, well-developed, well-nourished HEENT: PERRL, hearing is well preserved, oral hygience is good Neck: No carotid bruit; carotid pulses are 2 + bilaterally Respiratory: No accessory muscle use, No respiratory distress; chest expansion is symmetric, chest is bilaterally symmetric, lungs clear to auscultation Cardiovascular: regular rate-rhythm; No JVD; S1 and S2 Gastrointestinal: No tender; soft, round, audible bowel sounds Extremities: no lower extremity edema bilateral Neurologic/Psychiatric: grossly intact (moves all extremities) Skin: No rash on exposed areas, No ulcerations on exposed areas Data Review Labs Laboratory Tests 07/07/20 07:25: White Blood Count 6.8, Red Blood Count 5.22, Hemoglobin 15.1, Hematocrit 46, Mean Corpuscular Volume 87, Mean Corpuscular Hemoglobin 29, Mean Corpuscular Hemoglobin Concent 33, Red Cell Distribution Width 13.6, Platelet Count 245, Mean Platelet Volume 9.2, Immature Granulocyte % (Auto) 1, Neutrophils (%) (Auto) 42, Lymphocytes (%) (Auto) 44, Monocytes (%) (Auto) 10, Eosinophils (%) (Auto) 3, Basophils (%) (Auto) 1, Neutrophils # (Auto) 2.8, Lymphocytes # (Auto) 3.0, Monocytes # (Auto) 0.7, Eosinophils # (Auto) 0.2, Basophils # (Auto) 0.1, Immature Granulocyte # (Auto) 0.1, Prothrombin Time 12.7, INR Comment 0.9, Activated Partial Thromboplast Time 26, Sodium Level 132L, Potassium Level 4.5, Chloride Level 97L, Carbon Dioxide Level 24, Anion Gap 11, Blood Urea Nitrogen 23H, Creatinine 1.09, Estimat Glomerular Filtration Rate > 60, BUN/Creatinine Ratio 21, Glucose Level 153H, Calcium Level 9.6, Corrected Calcium 9.3, Magnesium Level 2.1, Total Bilirubin 0.4, Aspartate Amino Transf (AST/SGOT) 18, Alanine Aminotransferase (ALT/SGPT) 26, Alkaline Phosphatase 50, Myoglobin 48.0, Troponin I < 0.028, Total Protein 7.3, Albumin 4.4 07/07/20 11:00: Glucometer 136H 07/07/20 16:12: Glucometer 103 A/P-Cardiology Assessment/Admission Diagnosis Paroxysmal atrial fib/flutter - first diagnosed on an ECG of 12/12/16. - H/O successful conversion to NSR following 50J sync external cardioversion on 12/13/16 - episode of a-fib on 07-07-20 - converted to SR on Cardizem gtt OAC - reported intolerance to oral anticoagulants (bleeds profusely from minor cuts, worries about OAC) - has only been taking ASA 81mg BID - agrees to OAC after another discussion on 07/07/20. Agreed to Xarelto because he felt he could get it for a lower pleitez than other anticoags PETE diagnosed in Nov 2018, being treated with CPAP - not compliant with CPAP Hypertension, controlled No evidence of ACS TTE on 07/07/20: LVEF approx 60-65%, grade 2 vallejo dysfunction, PASP 30-35 mmHg STAN on 12/13/16: LVEF 55-60%, normal valvular structure, trivial MR and TR, no evidence of intracardiac shunt or thrombus Obesity with BMI 37. PETE suspected Impaired fasting glucose H/o DJD Hypertension, controlled TSH normal on lab work of 12/12/16 at the [facility] Mild bilat leg swelling, likely related to venous insuff Discussion and Recomendations I had a long and detailed discussion with him regarding the potential causes of PAF and the various treatment options. He wishes to be managed conservatively only. Does agree to OAC after another discussion of rationale, potential side effects, potential benefits. Increase oral to keep heart rate controlled during PAF Stop ASA and start OAC Advised compliance with CPAP We would like to thank Medical services for this consult Oupt cardiac f/u advised Clinical Quality Measures AMI/AHF: ASA po Prior to arrival: Yes (Full dose this morning) OLENA ABREU MD FACP FAC CCDS July 07, 2020 17:58
[2020-07-07] MEDS ORDERED: APIXABAN 5 MG (ELIQUIS) TABLET PO SCH (21:00)
[2020-07-08] MEDS ORDERED: MAGNESIUM 1 GM/100 ML IVPB 100 ML IV SCH ×2 (06:00)
[2020-07-08] MEDS ORDERED: KCL 20 MEQ TAB (K-DUR) PO SCH ×2 (06:00)
[2020-07-08] MEDS ORDERED: POTASSIUM CL 10MEQ/50ML IVPB 50 ML IV SCH ×2 (06:00)
== END 2020-07-07 18:20 | disposition home or self-care (01) | DRG 310 ==
LOC: EDUNIT# 07:20 → ER 07:22 → ICU 08:27
PROVIDERS: ADMIT Family Medicine; ATTEND Family Medicine
DX: I48.0 Paroxysmal atrial fibrillation (principal); I10 Essential (primary) hypertension; I48.92 Unspecified atrial flutter; E78.5 Hyperlipidemia, unspecified; G47.33 Obstructive sleep apnea (adult) (pediatric); F41.9 Anxiety disorder, unspecified; F32.9 Major depressive disorder, single episode, unspecified; K58.9 Irritable bowel syndrome, unspecified; E66.9 Obesity, unspecified; M19.90 Unspecified osteoarthritis, unspecified site; E11.649 Type 2 diabetes mellitus with hypoglycemia without coma; I87.2 Venous insufficiency (chronic) (peripheral); Z68.37 Body mass index [BMI] 37.0-37.9, adult; Z79.01 Long term (current) use of anticoagulants; Z79.899 Other long term (current) drug therapy
CPT/HCPCS: 36415; 71045; 80053; 82947; 83735; 83874; 84484; 85025; 85610; 85730; 87081; 93005; 93041; 93306

== ENCOUNTER → 2020-07-28 | Outpatient (CLI) | payer SELFPAY ==
[~2020-07-28] MED LIST changes: +ASPI-1238 PO; +CATHETER FLUSH 10 ML SYR IV PRN; +CITA20TA9 PO; +DILT300C26 PO; +GLUC-235 PO; +KRIL1CAP18 PO; +MELO7.5T46 PO; +METF-397 PO; +POTA10TA PO; +REGADENOSON 0.4 MG/5 ML SYR (LEXISCAN) IV ONE; +RIVA20TA2 PO; +TOTAL RESTORE PO
[2020-07-28 09:36] VITALS: BP 137/94
--- NOTE | 2020-07-28 13:38 | STRESS TEST ---
DATE OF SERVICE: 07/28/2020 RESTING AND POST REGADENOSON TECHNETIUM-99M TETROFOSMIN SPECT CT IMAGING ORDERING PHYSICIAN: Mojgan Acevedo APRN PRIMARY PHYSICIAN: Anahy Muse APRN CLINICAL DIAGNOSES: Palpitations, atrial flutter. Baseline images were carried out after injection of 10.28 mCi of technetium-99m Tetrofosmin. This was followed by 0.4 mg regadenoson and 28.5 mCi of technetium-99m Tetrofosmin for stress imaging. The electrocardiogram showed sinus rhythm at baseline. It did not change significantly with regadenoson infusion. Review of images at rest and following stress indicates a basal inferior perfusion defect that is seen both at rest and following regadenoson infusion. Gated images show normal global left ventricular systolic function, normal regional wall motion. Left ventricular ejection fraction is calculated to be 65%. Left ventricular end diastolic volume is 91 mL. CONCLUSIONS: 1. Technically somewhat difficult study due to the patient's body habitus. 2. No distinct evidence of myocardial ischemia or infarction. 3. Normal regional wall motion and normal global left ventricular systolic function with a calculated ejection fraction of 65%. Job ID: [id number] DocumentID: [id number] Dictated Date: 07/28/2020 13:28:22 Engineering Technical Specialist Date: 07/28/2020 13:36:43 Dictated By: OLENA ABREU MD, MA, FACP, FACC,
== END ==
LOC: CARD 08:15
PROVIDERS: ATTEND Nurse Practitioner Family
DX: I48.3 Typical atrial flutter (principal)
CPT/HCPCS: 78452; 93017; A9502

== ENCOUNTER 2020-08-18 07:21 | Emergency (ER) | payer SELFPAY ==
[~2020-08-18] VITALS: Ht 183 cm; Wt 126.4 kg
[~2020-08-18 07:21] MED LIST changes: -CATHETER FLUSH 10 ML SYR IV PRN; -REGADENOSON 0.4 MG/5 ML SYR (LEXISCAN) IV ONE
[2020-08-18] MEDS ORDERED: NS IV 500 ML 500 ML IV ONE (07:30)
[2020-08-18] MEDS ORDERED: dilTIAZem DRIP PRE-MIX 125 ML IV SCH (07:30)
--- NOTE | 2020-08-18 07:35 | ED Cardiac General ---
History of Present Illness General Stated Complaint: AFIB Source: patient Exam Limitations: no limitations History of Present Illness Date Seen by Provider: Aug 18, 2020 Time Seen by Provider: 07:15 Initial Comments Patient to the ER by private conveyance from home with chief complaint that for the past day he has been having rapid heart rate 1 20-1 40 range. He has been doing Valsalva maneuvers and getting it down to the 70s but it would just go back up. He feels a little bit tired but does not have any chest pain or shortness of air. No fevers or chills nausea vomiting diarrhea. No history of coronary disease. He did recently have a stress test by Dr. Riojas. He has a history of paroxysmal atrial fibrillation on Xarelto and Cardizem. He is known to [facility] for primary care. Allergies and Home Medications Allergies Coded Allergies: No Known Drug Allergies (Unverified , 12/02/12) Home Medications Aspirin 81 Mg Tablet.dr, 81 MG PO BID, (Reported) Citalopram Hydrobromide 20 Mg Tablet, 20 MG PO DAILY, (Reported) Diltiazem HCl 300 Mg Cap.er.24h, 300 MG PO DAILY, (Reported) Glucos Sul 2Kcl/MSM/Chond/C/Mn 1 Each Capsule, 1 EACH PO DAILY, (Reported) Krill/Om-3/Dha/Epa/Phospho/Ast 1 Each Capsule, 1 EACH PO BID, (Reported) L.acidoph & Paracasei,B.lactis 1 Each Capsule, 1 EACH PO DAILY, (Reported) Lisinopril/Hydrochlorothiazide 1 Each Tablet, 2 EA PO DAILY, (Reported) TAKES 2 (20/12.5MG) TABS Meloxicam 7.5 Mg Tablet, 7.5 MG PO BID, (Reported) Metformin HCl 500 Mg Tablet, 500 MG PO BID, (Reported) Metoprolol Succinate 50 Mg Tab.er.24h, 50 MG PO DAILY Prescribed by: ALEX ACOSTA on 08/18/20 1151 Potassium Chloride 10 Meq Tablet.er, 10 MEQ PO DAILY, (Reported) Rivaroxaban 20 Mg Tablet, 20 MG PO DAILY@1700 Prescribed by: PANKAJ SALMERON on 07/07/20 1659 [Total Restore] CAP, 3 CAP PO DAILY, (Reported) Patient Home Medication List Home Medication List Reviewed: Yes Review of Systems Review of Systems Constitutional: No chills, No diaphoresis EENTM: No Blurred Vision, No Double Vision Respiratory: Denies Cough, Denies Shortness of Air Cardiovascular: Denies Chest Pain, Denies Lightheadedness Gastrointestinal: Denies Constipated, Denies Diarrhea, Denies Nausea Genitourinary: Denies Burning, Denies Discharge Musculoskeletal: No back pain, No joint pain All Other Systems Reviewed Negative Unless Noted: Yes Past Mcwamvf-Maiadi-Flslgt Hx Patient Social History Alcohol Use: Denies Use Smoking Status: Never a Smoker Recent Hopitalizations: No Immunizations Up To Date Tetanus Booster (TDap): Unknown Date of Influenza Vaccine: Dec 04, 2019 Seasonal Allergies Seasonal Allergies: Yes Past Medical History Surgeries: Yes (sphincter) Respiratory: No Currently Using CPAP: No Currently Using BIPAP: No Cardiac: Yes (New onset Afib 12/12/16) Atrial Fibrillation Neurological: Yes Reproductive Disorders: No Sexually Transmitted Disease: No HIV/AIDS: No Genitourinary: No Gastrointestinal: Yes Chronic Diarrhea, Irritable Bowel Musculoskeletal: Yes (numb fingers/wrists) Arthritis Endocrine: Yes (Hypoglycemia) HEENT: No Cancer: No Psychosocial: Yes Anxiety, Depression Integumentary: No Blood Disorders: No Adverse Reaction/Blood Tranf: No Family Medical History FH: CABG (coronary artery bypass surgery) 19 FATHER FH: COPD (chronic obstructive pulmonary disease) 19 MOTHER FH: HTN (hypertension) 19 FATHER 19 MOTHER FH: macular degeneration 19 MOTHER FH: osteoporosis 19 MOTHER Physical Exam Vital Signs Vital Signs - First Documented 08/18/20 07:25 Temp 35.7 Pulse 163 Resp 20 B/P (MAP) 169/138 (148) Pulse Ox 97 O2 Delivery Room Air Capillary Refill : Height, Weight, BMI Height: 6'0.00" Weight: 272lbs. 11.5oz. 123.079643tj; 37.01 BMI Method:Stated General Appearance: WD/WN, Anxious, Mild Distress HEENT: PERRL/EOMI, Pharynx Normal, Moist Mucous Membranes Neck: Full Range of Motion, Normal Inspection Respiratory: Lungs Clear, Normal Breath Sounds, No Accessory Muscle Use, No Respiratory Distress Cardiovascular: Regular Rate, Rhythm, Normal Peripheral Pulses, Irregularly Irregular, Tachycardia (140) Gastrointestinal: Normal Bowel Sounds, Non Tender, Soft Extremity: Normal Capillary Refill, Normal Inspection, Normal Range of Motion, No Pedal Edema Neurologic/Psychiatric: Alert, Oriented x3, No Motor/Sensory Deficits Skin: Normal Color, Warm/Dry Progress/Results/Core Measures Results/Orders Lab Results Laboratory Tests Test 08/18/20 07:30 08/18/20 09:59 Range/Units White Blood Count 7.2 4.3-11.0 10^3/uL Red Blood Count 5.44 4.30-5.52 10^6/uL Hemoglobin 15.7 13.3-17.7 g/dL Hematocrit 48 40-54 % Mean Corpuscular Volume 89 80-99 fL Mean Corpuscular Hemoglobin 29 25-34 pg Mean Corpuscular Hemoglobin Concent 32 32-36 g/dL Red Cell Distribution Width 14.3 10.0-14.5 % Platelet Count 269 130-400 10^3/uL Mean Platelet Volume 9.2 9.0-12.2 fL Immature Granulocyte % (Auto) 1 % Neutrophils (%) (Auto) 48 42-75 % Lymphocytes (%) (Auto) 39 12-44 % Monocytes (%) (Auto) 10 0-12 % Eosinophils (%) (Auto) 2 0-10 % Basophils (%) (Auto) 1 0-10 % Neutrophils # (Auto) 3.4 1.8-7.8 10^3/uL Lymphocytes # (Auto) 2.8 1.0-4.0 10^3/uL Monocytes # (Auto) 0.7 0.0-1.0 10^3/uL Eosinophils # (Auto) 0.1 0.0-0.3 10^3/uL Basophils # (Auto) 0.1 0.0-0.1 10^3/uL Immature Granulocyte # (Auto) 0.0 0.0-0.1 10^3/uL Sodium Level 136 135-145 MMOL/L Potassium Level 4.5 3.6-5.0 MMOL/L Chloride Level 102 98-107 MMOL/L Carbon Dioxide Level 22 21-32 MMOL/L Anion Gap 12 5-14 MMOL/L Blood Urea Nitrogen 23 H 7-18 MG/DL Creatinine 1.04 0.60-1.30 MG/DL Estimat Glomerular Filtration Rate > 60 BUN/Creatinine Ratio 22 Glucose Level 183 H 70-105 MG/DL Calcium Level 9.6 8.5-10.1 MG/DL Corrected Calcium 9.4 8.5-10.1 MG/DL Magnesium Level 2.1 1.6-2.4 MG/DL Total Bilirubin 0.4 0.1-1.0 MG/DL Aspartate Amino Transf (AST/SGOT) 22 5-34 U/L Alanine Aminotransferase (ALT/SGPT) 36 0-55 U/L Alkaline Phosphatase 55 40-136 U/L Total Protein 7.5 6.4-8.2 GM/DL Albumin 4.3 3.2-4.5 GM/DL Glucometer 161 H 70-110 MG/DL My Orders Orders - ALEX ACOSTA Diltiazem Injection (Cardizem Injection) (08/18/20 07:30) Diltiazem Drip Pre-Mix (Cardizem Drip Pr (08/18/20 07:30) Cbc With Automated Diff (08/18/20 07:28) Comprehensive Metabolic Panel (08/18/20 07:28) Chest 1 View, Ap/Pa Only (08/18/20 07:28) Continuous Ekg Monitoring (08/18/20 07:28) Ekg Tracing (08/18/20 07:28) Magnesium (08/18/20 07:28) Ed Iv/Invasive Line Start (08/18/20 07:28) Ns Iv 500 Ml (Sodium Chloride 0.9%) (08/18/20 07:30) Metoprolol Succinate (Xl) Tab (Toprol Xl (08/18/20 11:30) Medications Given in ED Current Medications Medications Dose Ordered Sig/Kanika Route Start Time Stop Time Status Last Admin Dose Admin Diltiazem HCl 10 mg ONCE ONCE IVP 08/18/20 07:30 08/18/20 07:31 DC 08/18/20 07:35 10 MG Sodium Chloride 500 ml @ 0 mls/hr Q0M ONCE IV 08/18/20 07:30 08/18/20 07:31 DC 08/18/20 07:35 500 MLS/HR Vital Signs/I&O 08/18/20 07:25 Temp 35.7 Pulse 163 Resp 20 B/P (MAP) 169/138 (148) Pulse Ox 97 O2 Delivery Room Air Progress Progress Note : Time: 07:20 Progress Note 10 of Cardizem, 500 of fluids, Cardizem drip started at 10 mg/h. A. fib with RVR Initial ECG Impression Date: Aug 18, 2020 Initial ECG Impression Time: 07:24 Initial ECG Rate: 160 Initial ECG Rhythm: A Fib/Flutter Initial ECG Intervals: QT (472) Initial ECG Impression: Atrial Fibrillation w/RVR Comment Atrial fibrillation with rapid ventricular response. Diagnostic Imaging Diagonstic Imaging: Xray Plain Films/CT/US/NM/MRI: chest Comments NAME: ANJALI FAN [facility] REC#: [id number] PT STATUS: REG ER : 1960 PHYSICIAN: ALEX ACOSTA MD ADMIT DATE: 08/18/20/ER Signed Date of Exam:08/18/20 CHEST 1 VIEW, AP/PA ONLY CHEST 1 VIEW, AP/PA ONLY Indication: Tachycardia Comparison: 07/07/2020 Findings: No focal airspace disease in the visualized lungs. Please note that the posterior lower lobes are poorly evaluated by portable radiography. No pleural effusion or pneumothorax. Normal cardiomediastinal silhouette. Impression: 1. No acute cardiopulmonary process by portable radiography. Dictated by: Dictated on workstation # [id number] Dict: 08/18/20899 Trans: 08/18/20900 [facility] [id number] Interpreted by: HEIDI GOODMAN MD Electronically signed by: HEIDI GOODMAN MD 08/18/20900 Reviewed: Reviewed by Me Consults : Consulting Physician: OLENA CORONADO MD [facility] Consults Notes Discussed the case with Dr. Riojas who is familiar with the patient and if the patient is in sinus rhythm now he is okay with letting him go home if he is comfortable and following up in the next 1 to 2 weeks with his provider. Start him on metoprolol succinate 50 mg daily. Taken the patient off the drip and he is in sinus rhythm in the 70s. Departure Impression Primary Impression: Atrial fibrillation with RVR Disposition: 01 HOME, SELF-CARE Condition: Improved Departure-Patient Inst. Decision time for Depature: 11:37 Referrals: NO,LOCAL PHYSICIAN (PCP) Primary Care Physician RAYN CALDERON (Family) Primary Care Physician OLENA CORONADO MD [facility] Patient Instructions: Atrial Fibrillation (DC) Add. Discharge Instructions: Continue taking all of your other medications as prescribed. Dr. Coronado would like to add Toprol XL 50 mg daily. Start your dose tomorrow as we will give you a dose here in the ER. Follow-up in [address] Coronado in the clinic. Scripts Metoprolol Succinate (Toprol Xl) 50 Mg Tab.er.24h 50 MG PO DAILY for 14 Days, #14 TAB 0 Refills Prov: ALEX ACOSTA 08/18/20 Copy Copies To 1: OLENA CORONADO MD FACP FACC CCDS ALEX ACOSTA Aug 18, 2020 07:35
[2020-08-18 07:43] LABS: BASOPHILS # (AUTO) 0.1 10^3/uL (0.0-0.1); BASOPHILS % (AUTO) 1 % (0-10); EOSINOPHILS # (AUTO) 0.1 10^3/uL (0.0-0.3); EOSINOPHILS % (AUTO) 2 % (0-10); HEMATOCRIT 48 % (40-54); HEMOGLOBIN 15.7 g/dL (13.3-17.7); LYMPHOCYTES # (AUTO) 2.8 10^3/uL (1.0-4.0); LYMPHOCYTES % (AUTO) 39 % (12-44); MEAN CORPUSCULAR HEMOGLOBIN 29 pg (25-34); MEAN CORPUSCULAR HGB CONC 32 g/dL (32-36); MEAN CORPUSCULAR VOLUME 89 fL (80-99); MEAN PLATELET VOLUME 9.2 fL (9.0-12.2); MONOCYTES # (AUTO) 0.7 10^3/uL (0.0-1.0); MONOCYTES % (AUTO) 10 % (0-12); NEUTROPHILS # (AUTO) 3.4 10^3/uL (1.8-7.8); NEUTROPHILS % (AUTO) 48 % (42-75); PLATELET COUNT 269 10^3/uL (130-400); WHITE BLOOD COUNT 7.2 10^3/uL (4.3-11.0)
[2020-08-18 07:47] LABS: ALBUMIN 4.3 GM/DL (3.2-4.5); CHLORIDE 102 MMOL/L (98-107); POTASSIUM 4.5 MMOL/L (3.6-5.0); SODIUM 136 MMOL/L (135-145)
[2020-08-18 07:49] LABS: CALCIUM 9.6 MG/DL (8.5-10.1)
[2020-08-18 07:50] LABS: GLUCOSE 183 MG/DL (70-105); TOTAL PROTEIN 7.5 GM/DL (6.4-8.2)
[2020-08-18 07:51] LABS: BILIRUBIN,TOTAL 0.4 MG/DL (0.1-1.0); CARBON DIOXIDE 22 MMOL/L (21-32)
[2020-08-18 07:53] LABS: ALKALINE PHOSPHATASE 55 U/L (40-136); CREATININE SERUM 1.04 MG/DL (0.60-1.30); GFR ESTIMATED > 60
[2020-08-18 07:54] LABS: BUN/CREATININE RATIO 22
[2020-08-18 07:56] LABS: ALANINE AMINOTRANSFERASE 36 U/L (0-55); MAGNESIUM 2.1 MG/DL (1.6-2.4)
--- NOTE | 2020-08-18 09:02 | Diagnostic Imaging Report ---
CHEST 1 VIEW, AP/PA ONLY Indication: Tachycardia Comparison: 07/07/2020 Findings: No focal airspace disease in the visualized lungs. Please note that the posterior lower lobes are poorly evaluated by portable radiography. No pleural effusion or pneumothorax. Normal cardiomediastinal silhouette. Impression: 1. No acute cardiopulmonary process by portable radiography. Dictated by: Dictated on workstation # [id number]
[2020-08-18] MEDS ORDERED: meTOproloL SUCCINATE 50 MG (TOPROL XL) TAB PO SCH (11:30)
[2020-08-18] MEDS ORDERED: METO-352 PO ×2 (11:51→11:57)
[2020-08-18 11:59] VITALS: BP 139/88
== END 2020-08-18 12:00 | disposition home or self-care (01) ==
LOC: EDUNIT# 07:21 → ER 07:23
DX: I48.0 Paroxysmal atrial fibrillation (principal); F41.9 Anxiety disorder, unspecified; F32.9 Major depressive disorder, single episode, unspecified; Z79.01 Long term (current) use of anticoagulants; Z79.899 Other long term (current) drug therapy
CPT/HCPCS: 36415; 71045; 80053; 82947; 83735; 85025; 93005

== ENCOUNTER → 2022-12-20 | Outpatient (CLI) | payer SELFPAY ==
[~2022-12-20] MED LIST changes: +METO-352 PO; +POTA-185 PO; -POTA10TA PO; -POTA99TA21 PO; +POTA99TA26 PO
== END ==
LOC: CARD 08:24
PROVIDERS: ATTEND Nurse Practitioner Family
DX: I51.9 Heart disease, unspecified (principal)
CPT/HCPCS: 93306